=== PATIENT | female | born 1995 | race Caucasian/White ===

== ENCOUNTER 2021-06-04 09:56 | Emergency (ER) | payer OTHER ==
[~2021-06-04] VITALS: Ht 167.6 cm; Wt 68.0 kg
[2021-06-04 09:58] VITALS: BP 131/96
[2021-06-04] MEDS ORDERED: ACETAMINOPHEN 325MG TABLET PO ONE (10:15)
[2021-06-04] MEDS ORDERED: TOPUD PO (11:41)
== END 2021-06-04 12:33 ==
LOC: ER 09:56
DX: M79.18 Myalgia, other site (principal); R51.9 Headache, unspecified; M54.2 Cervicalgia
CPT/HCPCS: 70486; 81025; 99284